=== PATIENT | female | born 1955 | race Caucasian/White ===

== ENCOUNTER 2018-10-27 09:22 | Day surgery (SDC) | payer OTHER ==
[2018-10-27] MEDS ORDERED: LIDOCAINE 100 MG SYRINGE (11:19)
[2018-10-27] MEDS ORDERED: PROPOFOL 40 ML (11:19)
== END 2018-10-27 12:37 | disposition home or self-care (01) ==
LOC: GIL 09:22
DX: K31.7 Polyp of stomach and duodenum (principal); D12.3 Benign neoplasm of transverse colon; K64.8 Other hemorrhoids; K64.4 Residual hemorrhoidal skin tags; K21.9 Gastro-esophageal reflux disease without esophagitis
CPT/HCPCS: 43239; 88305; 88312